=== PATIENT | male | born 1955 | race Caucasian/White ===

== ENCOUNTER 2016-10-23 15:09 | Emergency (ER) | payer OTHER ==
[~2016-10-23] VITALS: Ht 172.7 cm; Wt 90.0 kg
[~2016-10-23 15:09] MED LIST: METO25 PO; MV,M1TAB4 PO
[2016-10-23] MEDS ORDERED: SODIUM CHLORIDE 0.9% 1,000 ML IV ONE (16:15)
[2016-10-23 16:19] LABS: BASOPHILS % (AUTO) 0.6 % (0.0-2.0); EOSINOPHILS % (AUTO) 6.2 % (1.0-6.0); HEMATOCRIT 42.5 % (41-53); HEMOGLOBIN 14.7 g/dL (13.5-17.5); LYMPHOCYTES # (AUTO) 2.1 K/uL (1.0-4.8); LYMPHOCYTES % (AUTO) 36.9 % (22.0-44.0); MEAN CORPUSCULAR HEMOGLOBIN 31.2 pg (26.0-34.0); MEAN CORPUSCULAR HGB CONC 34.6 G/dL (31.0-37.0); MEAN CORPUSCULAR VOLUME 90 fL (80-100); MONOCYTES # (AUTO) 0.6 K/uL (0.1-1.0); MONOCYTES % (AUTO) 9.6 % (2.0-9.0); NEUTROPHILS # (AUTO) 2.7 K/uL (1.8-7.7); NEUTROPHILS % (AUTO) 46.7 % (40.0-70.0); PLATELET COUNT (AUTO) 133 K/uL (150-450); RED BLOOD CELL COUNT(AUTO) 4.71 MIL/uL (4.50-5.90); RED CELL DISTRIBUTION WIDTH 14.1 % (11.5-14.5); WHITE BLOOD COUNT (AUTO) 5.8 K/uL (4.5-11.0)
[2016-10-23 16:39] LABS: ANION GAP 10 mmol/L (8-16); CALCIUM, TOTAL 8.6 mg/dL (8.8-10.5); CARBON DIOXIDE 26 mmol/L (22-29); CHLORIDE 101 mmol/L (98-107); CREATININE 1.18 mg/dL (0.60-1.30); GLOMERULAR FILTR. RATE CALC > 60 mL/min (>60); POTASSIUM 3.8 mmol/L (3.5-5.1); SODIUM SERUM 137 mmol/L (136-145); UREA NITROGEN, BLOOD 12 mg/dL (7-18)
[2016-10-23 16:46] LABS: ALANINE AMINOTRANSFERASE 37 U/L (12-78); ALBUMIN 3.5 g/dL (3.4-5.0); ASPARTATE AMINOTRANSFERASE 28 U/L (15-37); BILIRUBIN,TOTAL 0.7 mg/dL (0.1-1.0); INR 1.1 (0.9-1.1); PROTHROMBIN TIME 11.7 SEC (9.4-11.6); TOTAL PROTEIN, SERUM 7.9 g/dL (6.4-8.2)
[2016-10-23 17:00] LABS: APPEARANCE,URINE CLEAR (CLEAR); GLUCOSE, URINE (UA) NEGATIVE (NEGATIVE); KETONES,URINE NEGATIVE (NEGATIVE); LEUKOCYTE ESTERASE ,URINE NEGATIVE (NEGATIVE); OCCULT BLOOD,URINE NEGATIVE (NEGATIVE); PROTEIN,URINE NEGATIVE (NEGATIVE)
[2016-10-23 17:05] LABS: ADD UA MICROSCOPIC NO
[2016-10-23 17:14] VITALS: BP 109/69
== END 2016-10-23 17:29 | disposition home or self-care (01) ==
LOC: EMS 15:15
DX: K92.1 Melena (principal); K74.60 Unspecified cirrhosis of liver; I10 Essential (primary) hypertension; F17.210 Nicotine dependence, cigarettes, uncomplicated
CPT/HCPCS: 36415; 80053; 80307; 81003; 82140; 83690; 85025; 85610; 93005; 96360; 99285; 99406; G0480; J7030

== ENCOUNTER 2019-06-19 09:49 | Emergency (ER) | payer MEDICAID, OTHER ==
[~2019-06-19] VITALS: Ht 175.3 cm; Wt 100.0 kg
[2019-06-19 12:46] LABS: APPEARANCE,URINE CLEAR (CLEAR); BILIRUBIN,URINE NEGATIVE (NEGATIVE); GLUCOSE, URINE (UA) NEGATIVE (NEGATIVE); KETONES,URINE NEGATIVE (NEGATIVE); LEUKOCYTE ESTERASE ,URINE NEGATIVE (NEGATIVE); NITRATE,URINE NEGATIVE (NEGATIVE); OCCULT BLOOD,URINE NEGATIVE (NEGATIVE)
[2019-06-19 12:48] LABS: BACTERIA,URINE None Seen /HPF (None Seen); PROTEIN,URINE NEGATIVE (NEGATIVE); RBC,URINE None Seen /HPF (0-2); WBC,URINE None Seen /HPF (0-5)
[2019-06-19] MEDS ORDERED: IOVERSOL 350 MG/ML 100 ML VIAL ONE (13:33)
[2019-06-19] MEDS ORDERED: SODIUM CHLORIDE 0.9% 100 ML ONE (13:33)
[2019-06-19 14:08] LABS: BASOPHILS % (AUTO) 0.9 % (0.0-2.0); EOSINOPHILS % (AUTO) 2.8 % (1.0-6.0); HEMATOCRIT 42.5 % (41-53); HEMOGLOBIN 14.4 g/dL (13.5-17.5); LYMPHOCYTES # (AUTO) 2.1 K/uL (1.0-4.8); LYMPHOCYTES % (AUTO) 41.1 % (22.0-44.0); MEAN CORPUSCULAR HEMOGLOBIN 29.7 pg (26.0-34.0); MEAN CORPUSCULAR HGB CONC 33.9 G/dL (31.0-37.0); MEAN CORPUSCULAR VOLUME 88 fL (80-100); MONOCYTES # (AUTO) 0.4 K/uL (0.1-1.0); MONOCYTES % (AUTO) 8.3 % (2.0-9.0); NEUTROPHILS # (AUTO) 2.3 K/uL (1.8-7.7); NEUTROPHILS % (AUTO) 46.9 % (40.0-70.0); PLATELET COUNT (AUTO) 149 K/uL (150-450); RED BLOOD CELL COUNT(AUTO) 4.85 MIL/uL (4.50-5.90); RED CELL DISTRIBUTION WIDTH 13.8 % (11.5-14.5)
[2019-06-19 14:26] LABS: ANION GAP 6 mmol/L (8-16); CALCIUM, TOTAL 9.6 mg/dL (8.8-10.5); CARBON DIOXIDE 28 mmol/L (22-29); CHLORIDE 104 mmol/L (98-107); CREATININE 1.04 mg/dL (0.60-1.30); GLOMERULAR FILTR. RATE CALC > 60 mL/min (>60); GLUCOSE,RANDOM 105 mg/dL (70-110); SODIUM SERUM 138 mmol/L (136-145); UREA NITROGEN, BLOOD 13 mg/dL (7-18)
[2019-06-19 14:39] LABS: ALANINE AMINOTRANSFERASE 47 U/L (12-78); ALBUMIN 3.8 g/dL (3.4-5.0); ALKALINE PHOSPHATASE 74 U/L (46-116); ASPARTATE AMINOTRANSFERASE 25 U/L (15-37); BILIRUBIN,TOTAL 0.4 mg/dL (0.1-1.0); LIPASE 371 U/L (73-393); TOTAL PROTEIN, SERUM 8.3 g/dL (6.4-8.2)
[2019-06-19] MEDS ORDERED: ONDANSETRON HCL 4 MG/2 ML VIAL IVP ONE (14:45)
[2019-06-19 16:00] VITALS: BP 143/95
== END 2019-06-19 16:31 | disposition home or self-care (01) ==
LOC: EMS 09:51
DX: N40.1 Benign prostatic hyperplasia with lower urinary tract symptoms (principal); I86.1 Scrotal varices; I10 Essential (primary) hypertension; F17.210 Nicotine dependence, cigarettes, uncomplicated
CPT/HCPCS: 36415; 74177; 76870; 80053; 81001; 83690; 85025; 96374; 99285; J2405; J7050; Q9967

== ENCOUNTER 2022-04-14 17:40 | Inpatient (IN) | payer MEDICAID ==
[~2022-04-14] VITALS: Ht 175.3 cm; Wt 96.2 kg
[~2022-04-14 17:40] MED LIST changes: +GABA-1181 PO; +LACT10SO10 PO; +LOPE-202 PO; +METF-1211 PO; -METO25 PO; -MV,M1TAB4 PO; +OMEG100015 PO; +OMEP20 PO; +SEMA0.25 SD; +SPIR-37 PO; +VITA-328 PO
[2022-04-14 18:37] LABS: APPEARANCE,URINE CLEAR (CLEAR); BILIRUBIN,URINE NEGATIVE (NEGATIVE); GLUCOSE, URINE (UA) NEGATIVE (NEGATIVE); KETONES,URINE NEGATIVE (NEGATIVE); LEUKOCYTE ESTERASE ,URINE NEGATIVE (NEGATIVE); NITRATE,URINE NEGATIVE (NEGATIVE); OCCULT BLOOD,URINE NEGATIVE (NEGATIVE); PROTEIN,URINE 30-70 mg/dL (NEGATIVE)
[2022-04-14 18:39] LABS: SPECIFIC GRAVITIY, URINE > 1.050 (1.003-1.030)
[2022-04-14 18:47] LABS: BACTERIA,URINE None Seen /HPF (None Seen); RBC,URINE None Seen /HPF (0-2); WBC,URINE None Seen /HPF (0-5)
[2022-04-14 18:49] LABS: BASOPHILS % (AUTO) 1.8 % (0.0-2.0); EOSINOPHILS % (AUTO) 2.5 % (1.0-6.0); HEMATOCRIT 36.6 % (41-53); HEMOGLOBIN 12.2 g/dL (13.5-17.5); LYMPHOCYTES # (AUTO) 0.8 K/uL (1.0-4.8); MEAN CORPUSCULAR HEMOGLOBIN 24.8 pg (26.0-34.0); MEAN CORPUSCULAR HGB CONC 33.2 G/dL (31.0-37.0); MEAN CORPUSCULAR VOLUME 75 fL (80-100); MONOCYTES # (AUTO) 0.5 K/uL (0.1-1.0); MONOCYTES % (AUTO) 20.3 % (2.0-9.0); NEUTROPHILS # (AUTO) 1.2 K/uL (1.8-7.7); NEUTROPHILS % (AUTO) 45.4 % (40.0-70.0); PLATELET COUNT (AUTO) 137 K/uL (150-450); RED BLOOD CELL COUNT(AUTO) 4.91 MIL/uL (4.50-5.90); RED CELL DISTRIBUTION WIDTH 19.8 % (11.5-14.5)
[2022-04-14 19:03] LABS: ANION GAP 7 mmol/L (8-16); CALCIUM, TOTAL 9.4 mg/dL (8.8-10.5); CARBON DIOXIDE 27 mmol/L (22-29); CHLORIDE 96 mmol/L (98-107); CREATININE 1.67 mg/dL (0.60-1.30); GLOMERULAR FILTR. RATE CALC 42 mL/min (>60); GLUCOSE,RANDOM 244 mg/dL (70-110); POTASSIUM 4.3 mmol/L (3.5-5.1); SODIUM SERUM 130 mmol/L (136-145); UREA NITROGEN, BLOOD 27 mg/dL (7-18)
[2022-04-14 19:17] LABS: ALANINE AMINOTRANSFERASE 19 U/L (12-78); ALBUMIN 3.2 g/dL (3.4-5.0); ALKALINE PHOSPHATASE 89 U/L (46-116); ASPARTATE AMINOTRANSFERASE 30 U/L (15-37); BILIRUBIN,TOTAL 1.5 mg/dL (0.1-1.0); LIPASE 1360 U/L (73-393); TOTAL PROTEIN, SERUM 8.3 g/dL (6.4-8.2)
[2022-04-14 19:33] LABS: LACTIC ACID 2.4 mmol/L (0.4-2.0)
[2022-04-14] MEDS ORDERED: CARV3.1231 PO (20:13)
[2022-04-14] MEDS ORDERED: FERR325T23 PO (20:13)
[2022-04-14] MEDS ORDERED: CETI10TA58 PO (20:13)
[2022-04-14] MEDS ORDERED: RINGERS LACTATED IV ONE (20:15)
[2022-04-14] MEDS ORDERED: SODIUM CHLORIDE 0.9% 2,000 ML IV ONE (20:15)
[2022-04-14] MEDS ORDERED: ONDANSETRON HCL 4 MG/2 ML VIAL IVP PRN (20:15)
[2022-04-14] MEDS ORDERED: LOPERAMIDE HCL 2 MG/15 ML SUSPENSION UDCUP PO PRN (20:15)
[2022-04-14] MEDS ORDERED: DEXTROSE 50%-WATER 25 GM/50 ML SYRINGE IVP PRN (20:15)
[2022-04-14] MEDS ORDERED: ACETAMINOPHEN 325 MG TABLET PO PRN (20:15)
[2022-04-14] MEDS ORDERED: CefTRIAXone 1 GM/DEXTROSE 50 ML IV ONE (20:15)
[2022-04-14] MEDS ORDERED: PIPERACILLIN/TAZO 3.375 GM/D5W 50 ML IV ONE (20:15)
[2022-04-14 20:33] LABS: COVID AG,FIA SOURCE NASOPHARYNGEAL
[2022-04-14 20:38] LABS: INR 1.2 (0.9-1.1); PROTHROMBIN TIME 12.5 SEC (9.4-11.6)
[2022-04-14 21:21] LABS: CREATININE,URINE RANDOM 230.1 mg/dL (30.0-125.0)
[2022-04-14 21:59] LABS: B-TYPE NATRIURETIC PEPTIDE 17 pg/mL (0-100)
[2022-04-14 22:01] LABS: CREATINE KINASE, TOTAL ONLY 98 U/L (39-308)
[2022-04-15] MEDS: MORPHINE SULFATE 2 MG/ML SYRINGE IVP PRN ×6 (00:01→20:16)
[2022-04-15 01:01] LABS: GLUCOMETER DEV NAME(LOC) ERT.5; GLUCOSE,POINT OF CARE 111 MG/DL (70-110)
[2022-04-15] MEDS: PIPERACILLIN/TAZO 3.375 GM/D5W 50 ML IV SCH ×4 (02:15→19:07)
[2022-04-15] MEDS: SODIUM CHLORIDE 0.45% 1,000 ML IV SCH ×2 (02:15→13:29)
[2022-04-15 05:11] LABS: GLUCOMETER DEV NAME(LOC) ERT.5; GLUCOSE,POINT OF CARE 136 MG/DL (70-110)
[2022-04-15 05:48] LABS: BASOPHILS % (AUTO) 1.6 % (0.0-2.0); EOSINOPHILS % (AUTO) 3.6 % (1.0-6.0); HEMATOCRIT 32.6 % (41-53); HEMOGLOBIN 10.7 g/dL (13.5-17.5); LYMPHOCYTES # (AUTO) 0.9 K/uL (1.0-4.8); LYMPHOCYTES % (AUTO) 39.1 % (22.0-44.0); MEAN CORPUSCULAR HEMOGLOBIN 24.5 pg (26.0-34.0); MEAN CORPUSCULAR HGB CONC 32.9 G/dL (31.0-37.0); MEAN CORPUSCULAR VOLUME 74 fL (80-100); MONOCYTES # (AUTO) 0.7 K/uL (0.1-1.0); MONOCYTES % (AUTO) 27.8 % (2.0-9.0); NEUTROPHILS # (AUTO) 0.7 K/uL (1.8-7.7); NEUTROPHILS % (AUTO) 27.9 % (40.0-70.0); PLATELET COUNT (AUTO) 108 K/uL (150-450); RED BLOOD CELL COUNT(AUTO) 4.38 MIL/uL (4.50-5.90); RED CELL DISTRIBUTION WIDTH 19.3 % (11.5-14.5)
[2022-04-15 05:54] LABS: CALCIUM, TOTAL 8.8 mg/dL (8.8-10.5); CREATININE 1.42 mg/dL (0.60-1.30); MAGNESIUM 1.2 mg/dL (1.80-2.40); POTASSIUM 3.6 mmol/L (3.5-5.1)
[2022-04-15] MEDS ORDERED: MAGNESIUM SULFATE 4 GM/WATER 100 ML IV PRN (07:45)
[2022-04-15] MEDS ORDERED: MAGNESIUM SULFATE 2 GM/WATER 50 ML IV PRN (07:45)
[2022-04-15] MEDS ORDERED: MAGNESIUM OXIDE 400 MG TABLET PO PRN (07:45)
[2022-04-15] MEDS: LACTULOSE 20 GM/30 ML SOLUTION UDCUP PO SCH (09:43)
[2022-04-15] MEDS: GABAPENTIN 300 MG CAPSULE PO SCH (09:43)
[2022-04-15] MEDS: OMEPRAZOLE 20 MG CAPSULE PO SCH (09:43)
[2022-04-15 11:02] LABS: ALBUMIN 2.8 g/dL (3.4-5.0)
[2022-04-15 20:55] VITALS: BP 125/78
[2022-04-15 22:57] LABS: GLUCOMETER DEV NAME(LOC) 5S.1B; GLUCOSE,POINT OF CARE 133 MG/DL (70-110)
[2022-04-16] MEDS: MORPHINE SULFATE 2 MG/ML SYRINGE IVP PRN ×3 (00:21→20:50)
[2022-04-16 01:40] VITALS: BP 100/55
[2022-04-16] MEDS: PIPERACILLIN/TAZO 3.375 GM/D5W 50 ML IV SCH ×4 (03:32→20:49)
[2022-04-16] MEDS: SODIUM CHLORIDE 0.45% 1,000 ML IV SCH ×2 (03:33→17:22)
[2022-04-16 07:13] VITALS: BP 102/57
[2022-04-16] MEDS: LACTULOSE 20 GM/30 ML SOLUTION UDCUP PO SCH (10:17)
[2022-04-16] MEDS: GABAPENTIN 300 MG CAPSULE PO SCH (10:18)
[2022-04-16] MEDS: OMEPRAZOLE 20 MG CAPSULE PO SCH (10:18)
[2022-04-16] MEDS: HEPARIN SODIUM,PORCINE 5,000 UNITS/ML VIAL SQ SCH ×3 (10:18→17:21)
[2022-04-16 11:03] VITALS: BP 113/71
[2022-04-16 16:09] VITALS: BP 106/66
[2022-04-16 19:35] VITALS: BP 113/75
[2022-04-16] MEDS: INSULIN LISPRO 100 UNITS/ML SQ PRN (22:17)
[2022-04-17 00:30] VITALS: BP 122/61
[2022-04-17] MEDS: PIPERACILLIN/TAZO 3.375 GM/D5W 50 ML IV SCH ×4 (01:10→20:23)
[2022-04-17 04:30] VITALS: BP 113/61
[2022-04-17] MEDS: SODIUM CHLORIDE 0.45% 1,000 ML IV SCH ×2 (05:58→18:32)
[2022-04-17] MEDS: INSULIN LISPRO 100 UNITS/ML SQ PRN (06:26)
[2022-04-17 07:11] LABS: GLUCOMETER DEV NAME(LOC) 5S.2B; GLUCOSE,POINT OF CARE 156 MG/DL (70-110)
[2022-04-17 07:11] LABS: GLUCOMETER DEV NAME(LOC) 5S.2B; GLUCOSE,POINT OF CARE 140 MG/DL (70-110)
[2022-04-17 07:12] LABS: GLUCOMETER DEV NAME(LOC) 5S.2B; GLUCOSE,POINT OF CARE 145 MG/DL (70-110)
[2022-04-17 08:00] VITALS: BP 118/64
[2022-04-17] MEDS: LACTULOSE 20 GM/30 ML SOLUTION UDCUP PO SCH (09:00)
[2022-04-17] MEDS: HEPARIN SODIUM,PORCINE 5,000 UNITS/ML VIAL SQ SCH ×3 (10:50→16:00)
[2022-04-17] MEDS: OMEPRAZOLE 20 MG CAPSULE PO SCH (10:51)
[2022-04-17] MEDS: GABAPENTIN 300 MG CAPSULE PO SCH (10:51)
[2022-04-17 11:33] VITALS: BP 105/65
[2022-04-17 15:53] VITALS: BP 122/77
[2022-04-17] MEDS: MORPHINE SULFATE 2 MG/ML SYRINGE IVP PRN (20:22)
[2022-04-17 20:38] VITALS: BP 116/66
[2022-04-17 21:20] LABS: COVID AG,FIA SOURCE NASAL SWAB
[2022-04-17] MEDS ORDERED: BENZOCAINE/MENTHOL LOZENGE PO PRN (22:45)
[2022-04-17] MEDS ORDERED: BENZONATATE 100 MG CAPSULE PO PRN (22:45)
[2022-04-18] MEDS: MORPHINE SULFATE 2 MG/ML SYRINGE IVP PRN ×5 (00:15→21:40)
[2022-04-18] MEDS: PIPERACILLIN/TAZO 3.375 GM/D5W 50 ML IV SCH ×4 (02:15→21:39)
[2022-04-18] MEDS: SODIUM CHLORIDE 0.45% 1,000 ML IV SCH ×2 (05:16→21:41)
[2022-04-18 06:39] LABS: BILIRUBIN,TOTAL 0.7 mg/dL (0.1-1.0); CALCIUM, TOTAL 9.7 mg/dL (8.8-10.5); CREATININE 1.37 mg/dL (0.60-1.30); POTASSIUM 4.4 mmol/L (3.5-5.1); TOTAL PROTEIN, SERUM 8.1 g/dL (6.4-8.2)
[2022-04-18 07:50] VITALS: BP 103/52
[2022-04-18] MEDS: LACTULOSE 20 GM/30 ML SOLUTION UDCUP PO SCH (08:49)
[2022-04-18] MEDS: GABAPENTIN 300 MG CAPSULE PO SCH (08:50)
[2022-04-18] MEDS: HEPARIN SODIUM,PORCINE 5,000 UNITS/ML VIAL SQ SCH ×3 (08:50→17:01)
[2022-04-18] MEDS: OMEPRAZOLE 20 MG CAPSULE PO SCH (08:50)
[2022-04-18] MEDS ORDERED: REMDESIVIR 200 MG in SODIUM CHLORIDE 0.9% 250 ML IV ONE (11:30)
[2022-04-18 12:10] VITALS: BP 107/57
[2022-04-18] MEDS: INSULIN LISPRO 100 UNITS/ML SQ PRN (13:12)
[2022-04-18 16:35] VITALS: BP 117/69
[2022-04-18 19:31] LABS: GLUCOMETER DEV NAME(LOC) 5N.1C; GLUCOSE,POINT OF CARE 129 MG/DL (70-110)
[2022-04-18 19:31] LABS: GLUCOMETER DEV NAME(LOC) 5N.1C; GLUCOSE,POINT OF CARE 200 MG/DL (70-110)
[2022-04-18 21:06] LABS: GLUCOMETER DEV NAME(LOC) 5N.1C; GLUCOSE,POINT OF CARE 126 MG/DL (70-110)
[2022-04-19] MEDS: SODIUM CHLORIDE 0.45% 1,000 ML IV SCH ×3 (00:46→20:54)
[2022-04-19] MEDS: PIPERACILLIN/TAZO 3.375 GM/D5W 50 ML IV SCH ×4 (01:20→20:53)
[2022-04-19] MEDS: HEPARIN SODIUM,PORCINE 5,000 UNITS/ML VIAL SQ SCH ×3 (01:20→16:36)
[2022-04-19 07:16] LABS: GLUCOMETER DEV NAME(LOC) 5N.1C; GLUCOSE,POINT OF CARE 112 MG/DL (70-110)
[2022-04-19 07:35] VITALS: BP 106/73
[2022-04-19] MEDS: OMEPRAZOLE 20 MG CAPSULE PO SCH (08:56)
[2022-04-19] MEDS: GABAPENTIN 300 MG CAPSULE PO SCH (08:57)
[2022-04-19] MEDS: LACTULOSE 20 GM/30 ML SOLUTION UDCUP PO SCH (09:00)
[2022-04-19 12:00] VITALS: BP 116/78
[2022-04-19] MEDS: INSULIN LISPRO 100 UNITS/ML SQ PRN ×2 (12:49→21:17)
[2022-04-19 16:15] VITALS: BP 117/97
[2022-04-19] MEDS: REMDESIVIR 100 MG in SODIUM CHLORIDE 0.9% 250 ML IV SCH (16:36)
[2022-04-19 20:00] VITALS: BP 131/61
[2022-04-19] MEDS: MORPHINE SULFATE 2 MG/ML SYRINGE IVP PRN (21:22)
[2022-04-19 23:51] LABS: GLUCOMETER DEV NAME(LOC) 5N.1C; GLUCOSE,POINT OF CARE 229 MG/DL (70-110)
[2022-04-19 23:51] LABS: GLUCOMETER DEV NAME(LOC) 5N.1C; GLUCOSE,POINT OF CARE 120 MG/DL (70-110)
[2022-04-19 23:51] LABS: GLUCOMETER DEV NAME(LOC) 5N.1C; GLUCOSE,POINT OF CARE 164 MG/DL (70-110)
[2022-04-19 23:53] VITALS: BP 114/75
[2022-04-20] MEDS: HEPARIN SODIUM,PORCINE 5,000 UNITS/ML VIAL SQ SCH ×3 (00:36→15:25)
[2022-04-20] MEDS: PIPERACILLIN/TAZO 3.375 GM/D5W 50 ML IV SCH ×3 (02:37→13:29)
[2022-04-20 04:00] VITALS: BP 102/69
[2022-04-20 06:17] LABS: BILIRUBIN,TOTAL 0.5 mg/dL (0.1-1.0); C-REACTIVE PROTEIN QUANT 4.97 mg/dL (0.00-0.30); CALCIUM, TOTAL 9.6 mg/dL (8.8-10.5); CREATININE 1.4 mg/dL (0.60-1.30); POTASSIUM 4.1 mmol/L (3.5-5.1); TOTAL PROTEIN, SERUM 8.1 g/dL (6.4-8.2)
[2022-04-20] MEDS: SODIUM CHLORIDE 0.45% 1,000 ML IV SCH (06:46)
[2022-04-20 07:31] VITALS: BP 99/58
[2022-04-20] MEDS: LACTULOSE 20 GM/30 ML SOLUTION UDCUP PO SCH ×2 (09:00→09:10)
[2022-04-20] MEDS: OMEPRAZOLE 20 MG CAPSULE PO SCH (09:09)
[2022-04-20] MEDS: GABAPENTIN 300 MG CAPSULE PO SCH (09:09)
[2022-04-20 11:32] LABS: BASOPHILS % (AUTO) 2.9 % (0.0-2.0); EOSINOPHILS % (AUTO) 3.9 % (1.0-6.0); HEMATOCRIT 34.3 % (41-53); HEMOGLOBIN 11.1 g/dL (13.5-17.5); LYMPHOCYTES # (AUTO) 0.9 K/uL (1.0-4.8); LYMPHOCYTES % (AUTO) 40.7 % (22.0-44.0); MEAN CORPUSCULAR HEMOGLOBIN 24.4 pg (26.0-34.0); MEAN CORPUSCULAR HGB CONC 32.5 G/dL (31.0-37.0); MEAN CORPUSCULAR VOLUME 75 fL (80-100); MONOCYTES # (AUTO) 0.6 K/uL (0.1-1.0); MONOCYTES % (AUTO) 26.9 % (2.0-9.0); NEUTROPHILS # (AUTO) 0.6 K/uL (1.8-7.7); NEUTROPHILS % (AUTO) 25.6 % (40.0-70.0); PLATELET COUNT (AUTO) 131 K/uL (150-450); RED BLOOD CELL COUNT(AUTO) 4.56 MIL/uL (4.50-5.90); RED CELL DISTRIBUTION WIDTH 19.7 % (11.5-14.5)
[2022-04-20 11:48] VITALS: BP 110/61
[2022-04-20] MEDS: INSULIN LISPRO 100 UNITS/ML SQ PRN ×2 (12:12→17:58)
[2022-04-20] MEDS: REMDESIVIR 100 MG in SODIUM CHLORIDE 0.9% 250 ML IV SCH (15:19)
[2022-04-20 15:39] VITALS: BP 122/77
[2022-04-20 18:07] LABS: GLUCOMETER DEV NAME(LOC) 5S.1B; GLUCOSE,POINT OF CARE 164 MG/DL (70-110)
[2022-04-20 19:41] LABS: GLUCOMETER DEV NAME(LOC) 5N.1C; GLUCOSE,POINT OF CARE 217 MG/DL (70-110)
== END 2022-04-20 18:10 | disposition home or self-care (01) | DRG 282 ==
LOC: EMS 17:43 → AHU 23:41 → 5S 04-15 18:53 → 5N 04-17 22:30
PROVIDERS: ADMIT Internal Medicine; ATTEND Internal Medicine
PROC: XW033E5 Introduction of Remdesivir Anti-infective into Peripheral Vein, Percutaneous Approach, New Technology Group 5 (ICD-10-PCS; principal; 2022-04-18)
DX: K85.90 Acute pancreatitis without necrosis or infection, unspecified (principal); R65.11 Systemic inflammatory response syndrome (SIRS) of non-infectious origin with acute organ dysfunction; U07.1 COVID-19; D61.818 Other pancytopenia; C22.0 Liver cell carcinoma; N17.9 Acute kidney failure, unspecified; C79.51 Secondary malignant neoplasm of bone; K86.1 Other chronic pancreatitis; E87.1 Hypo-osmolality and hyponatremia; I10 Essential (primary) hypertension; E83.42 Hypomagnesemia; E66.9 Obesity, unspecified; Z20.822 Contact with and (suspected) exposure to COVID-19; E11.65 Type 2 diabetes mellitus with hyperglycemia; M19.90 Unspecified osteoarthritis, unspecified site; Z68.31 Body mass index [BMI] 31.0-31.9, adult; Z79.899 Other long term (current) drug therapy
CPT/HCPCS: 71045; 74176; 76700; 80048; 80053; 81001; 82040; 82550; 82570; 82962; 83605; 83690; 83735; 83880; 83930; 83935; 84300; 84484; 85025; 85379; 85610; 85730; 86140; 87040; 93005; 99291; G0378; G0480; J1644; J2270; J2405; J2543; J3475; J7050; J7120; Q9967; 36415-L1; 36415-TC

== ENCOUNTER 2022-11-04 12:58 | Emergency (ER) | payer OTHER, MEDICAID ==
[~2022-11-04] VITALS: Ht 172.7 cm; Wt 86.4 kg
[~2022-11-04 12:58] MED LIST changes: +ASPI-1444 PO; +CALC-1271 PO; +ESCI-8 PO; -LACT10SO10 PO; +LEVO50TA11 PO; -LOPE-202 PO; -METF-1211 PO; -OMEG100015 PO; -OMEP20 PO; +OMEP40CA21 PO; +ONDA-104 PO; -SEMA0.25 SD; +SITA100 PO; -SPIR-37 PO; -VITA-328 PO
[2022-11-04 13:29] VITALS: TEMP 98.5
[2022-11-04 13:41] VITALS: BP 126/88; PULSE 74; RESP 18
[2022-11-04 14:40] LABS: BASOPHILS % (AUTO) 0.8 % (0.0-2.0); HEMATOCRIT 34.3 % (41-53); HEMOGLOBIN 11.3 g/dL (13.5-17.5); LYMPHOCYTES # (AUTO) 1.4 K/uL (1.0-4.8); MEAN CORPUSCULAR HEMOGLOBIN 25.4 pg (26.0-34.0); MEAN CORPUSCULAR VOLUME 77 fL (80-100); MONOCYTES # (AUTO) 0.7 K/uL (0.1-1.0); MONOCYTES % (AUTO) 17.2 % (2.0-9.0); NEUTROPHILS # (AUTO) 1.6 K/uL (1.8-7.7); PLATELET COUNT (AUTO) 155 K/uL (150-450); RED BLOOD CELL COUNT(AUTO) 4.46 MIL/uL (4.50-5.90)
[2022-11-04 14:48] LABS: CALCIUM, TOTAL 8.9 mg/dL (8.8-10.5); CREATININE 1.3 mg/dL (0.60-1.30); POTASSIUM 4.7 mmol/L (3.5-5.1)
[2022-11-04 14:54] LABS: ALBUMIN 2.7 g/dL (3.4-5.0); BILIRUBIN,TOTAL 0.6 mg/dL (0.1-1.0); TOTAL PROTEIN, SERUM 8.2 g/dL (6.4-8.2)
[2022-11-04] MEDS ORDERED: LACT10SO95 PO (15:18)
== END 2022-11-04 15:39 | disposition home or self-care (01) ==
LOC: EMS 13:05
DX: R27.0 Ataxia, unspecified (principal); K74.60 Unspecified cirrhosis of liver; E72.20 Disorder of urea cycle metabolism, unspecified; C22.0 Liver cell carcinoma; E11.9 Type 2 diabetes mellitus without complications; I10 Essential (primary) hypertension; K76.9 Liver disease, unspecified; Z85.9 Personal history of malignant neoplasm, unspecified
CPT/HCPCS: 70450; 80053; 82140; 85025; 99284

== ENCOUNTER 2023-03-19 12:17 | Emergency (ER) | payer OTHER, MEDICAID ==
[~2023-03-19] VITALS: Ht 175.3 cm; Wt 82.3 kg
[~2023-03-19 12:17] MED LIST changes: +LACT10SO95 PO
[2023-03-19 12:33] VITALS: TEMP 98.2
[2023-03-19] MEDS ORDERED: OxyCODONE HCL/ACETAMINOPHEN 5-325 MG TABLET PO ONE (15:00)
[2023-03-19] MEDS ORDERED: KETOROLAC TROMETHAMINE 60 MG/2 ML VIAL IM ONE (15:00)
[2023-03-19] MEDS ORDERED: PERCT PO (15:47)
[2023-03-19] MEDS ORDERED: IBUP-1492 PO (15:47)
[2023-03-19 16:52] VITALS: BP 119/75; PULSE 78; RESP 16
== END 2023-03-19 16:54 | disposition home or self-care (01) ==
LOC: EMS 12:17
DX: M54.6 Pain in thoracic spine (principal); M25.512 Pain in left shoulder; G89.29 Other chronic pain; F10.20 Alcohol dependence, uncomplicated; M19.90 Unspecified osteoarthritis, unspecified site; E11.9 Type 2 diabetes mellitus without complications; I10 Essential (primary) hypertension; Z98.890 Other specified postprocedural states; Y90.9 Presence of alcohol in blood, level not specified
CPT/HCPCS: 99283; 96372; J1885

== ENCOUNTER 2023-04-29 02:38 | Emergency (ER) | payer OTHER, MEDICAID ==
[2023-04-29] VITALS (7 sets, daily range): BP systolic 99–144; BP diastolic 55–86; PULSE 98–115; RESP 18–21; TEMP 98.5–99
[~2023-04-29] VITALS: Ht 175.3 cm; Wt 77.0 kg
[~2023-04-29 02:38] MED LIST changes: +IBUP-1492 PO; +PERCT PO
[2023-04-29 03:48] LABS: BASOPHILS % (AUTO) 1.1 % (0.0-2.0); EOSINOPHILS % (AUTO) 14.2 % (1.0-6.0); HEMATOCRIT 22.8 % (41-53); HEMOGLOBIN 7.4 g/dL (13.5-17.5); LYMPHOCYTES # (AUTO) 0.8 K/uL (1.0-4.8); LYMPHOCYTES % (AUTO) 18.3 % (22.0-44.0); MEAN CORPUSCULAR HEMOGLOBIN 23.2 pg (26.0-34.0); MEAN CORPUSCULAR HGB CONC 32.4 G/dL (31.0-37.0); MEAN CORPUSCULAR VOLUME 72 fL (80-100); MONOCYTES # (AUTO) 0.6 K/uL (0.1-1.0); MONOCYTES % (AUTO) 14.2 % (2.0-9.0); NEUTROPHILS # (AUTO) 2.2 K/uL (1.8-7.7); NEUTROPHILS % (AUTO) 52.2 % (40.0-70.0); PLATELET COUNT (AUTO) 205 K/uL (150-450); RED BLOOD CELL COUNT(AUTO) 3.19 MIL/uL (4.50-5.90); RED CELL DISTRIBUTION WIDTH 19.5 % (11.5-14.5); WHITE BLOOD COUNT (AUTO) 4.3 K/uL (4.5-11.0)
[2023-04-29 03:50] LABS: ANION GAP 14 mmol/L (8-16); CALCIUM, TOTAL 9.2 mg/dL (8.8-10.5); CARBON DIOXIDE 19 mmol/L (22-29); CHLORIDE 100 mmol/L (98-107); CREATININE 1.14 mg/dL (0.60-1.30); GLOMERULAR FILTR. RATE CALC > 60 mL/min (>60); GLUCOSE,RANDOM 140 mg/dL (70-110); POTASSIUM 3.8 mmol/L (3.5-5.1); SODIUM SERUM 133 mmol/L (136-145); UREA NITROGEN, BLOOD 16 mg/dL (7-18)
[2023-04-29 03:55] LABS: ALANINE AMINOTRANSFERASE 8 U/L (12-78); ALBUMIN 2.1 g/dL (3.4-5.0); ALKALINE PHOSPHATASE 219 U/L (46-116); ASPARTATE AMINOTRANSFERASE 21 U/L (15-37); BILIRUBIN,TOTAL 0.5 mg/dL (0.1-1.0); CREATINE KINASE, TOTAL ONLY 46 U/L (39-308); TOTAL PROTEIN, SERUM 8.9 g/dL (6.4-8.2)
[2023-04-29 04:00] LABS: INR 1.2 (0.9-1.1); PROTHROMBIN TIME 12.6 SEC (9.4-11.6)
[2023-04-29 04:03] LABS: AMMONIA 12 umol/L (11-32); TROPONIN I-HIGH SENSITIVITY 8 ng/L (<76)
[2023-04-29 04:17] LABS: B-TYPE NATRIURETIC PEPTIDE 17 pg/mL (0-100)
[2023-04-29 04:37] LABS: RBC MORPHOLOGY COMMENT ABNORMAL RBC MORPH
[2023-04-29 05:32] LABS: APPEARANCE,URINE CLEAR (CLEAR); BILIRUBIN,URINE NEGATIVE (NEGATIVE); COLOR,URINE LIGHT YELLOW (YELLOW); GLUCOSE, URINE (UA) NEGATIVE (NEGATIVE); KETONES,URINE NEGATIVE (NEGATIVE); LEUKOCYTE ESTERASE ,URINE NEGATIVE (NEGATIVE); NITRATE,URINE NEGATIVE (NEGATIVE); OCCULT BLOOD,URINE NEGATIVE (NEGATIVE); PH,URINE 5.5 (5.0-8.0); PROTEIN,URINE NEGATIVE (NEGATIVE); SPECIFIC GRAVITIY, URINE 1.009 (1.003-1.030); UROBILINOGEN,URINE <=1.0 mg/dL (<=1.0)
[2023-04-29] MEDS ORDERED: SODIUM CHLORIDE 0.9% 500 ML IV ONE (05:40)
[2023-04-29] MEDS ORDERED: IOHEXOL 350 MG/ML 100 ML VIAL ONE (06:13)
[2023-04-29] MEDS ORDERED: SODIUM CHLORIDE 0.9% 100 ML ONE (06:13)
[2023-04-29] MEDS ORDERED: SODIUM CHLORIDE 0.9% 1,000 ML IV ONE (06:15)
[2023-04-29] MEDS ORDERED: ACETAMINOPHEN 500 MG TABLET PO ONE (06:15)
[2023-04-29 06:42] LABS: COVID AG,FIA SOURCE NASAL SWAB
[2023-04-29 07:04] LABS: INFLUENZA TYPE A NEGATIVE FOR TYPE A (NEGATIVE); INFLUENZA TYPE B NEGATIVE FOR TYPE B (NEGATIVE); SARS-COV2 (COVID) ANTIGEN,FIA Negative (Negative)
== END 2023-04-29 10:29 | disposition home or self-care (01) ==
LOC: EMS 02:38
DX: D64.81 Anemia due to antineoplastic chemotherapy (principal); C22.8 Malignant neoplasm of liver, primary, unspecified as to type; F10.20 Alcohol dependence, uncomplicated; M19.90 Unspecified osteoarthritis, unspecified site; E11.9 Type 2 diabetes mellitus without complications; I10 Essential (primary) hypertension; Z98.890 Other specified postprocedural states; Z20.822 Contact with and (suspected) exposure to COVID-19
CPT/HCPCS: 99291; 36430; 96360; 71275; 71045; 87426; 80053; 81003; 82140; 82550; 83880; 84484; 85025; 85379; 85610; 85730; 87804; 86850; 86900; 86901; 86923; 36415; 93005; P9016; Q9967; J7030; J7050; J7040